=== PATIENT | female | born 1995 | race Two or more races ===

== ENCOUNTER 2024-04-17 12:27 | Emergency (ER) | payer MEDICAID, SELFPAY ==
[2024-04-17 12:38] VITALS: BP 137/88; PULSE 91; RESP 19; TEMP 36.6; O2SAT 98; BMI 36.9
--- NOTE | 2024-04-17 12:58 | XR_ITS ---
Examination: Pelvic ultrasound, transabdominal, complete Technique: Transabdominal ultrasound of the pelvis performed using grayscale imaging Date and time of exam: April 27, 2024 1356 hrs. Indications: Pelvic pressure and pain beginning one week ago Findings: Uterus 9.0 x 4.8 cm Endometrial stripe 16mm No uterine mass or intrauterine gestation Right ovary 5.2 x 4.8 x 5.6 cm arterial flow, 4.6 x 3.9 x 3.9 cm cyst Left ovary 3.3 x 2.0 x 2.5 cm arterial flow Impression: No uterine mass or intrauterine gestation Right ovarian cyst 4.6 x 3.9 x 3.9 cm, with internal echoes, consider hemorrhagic cyst, recommend 3 month follow-up pelvic sonography
--- NOTE | 2024-04-17 12:59 | PD.EDABDPN ---
ED Abdominal Pain RME/HPI General Chief Complaint: Abdominal Pain Stated complaint: PRESSURE ON UTERUS Time seen by provider: 04/17/24 12:56 Arrival date/time: 04/17/24 12:27 28-year-old female presents emergency department complaining of right pelvic pressure and cramping since this morning. Patient reports is approximately 4 to 5 weeks . Patient reports this is first . Source: patient Mode of arrival: ambulatory Limitations: no limitations Related Data Previous Rx's ?Medication ?Instructions ?Recorded omeprazole 40 mg capsule,delayed 40 mg PO QDAY #30 caps 05/19/19 release tramadol 50 mg tablet (Ultram) 50 mg PO BID PRN pain #7 tabs 02/14/20 cyclobenzaprine 10 mg tablet 10 mg PO BID PRN muscle spasm #10 12/10/23 tabs Allergies Allergy/AdvReac Type Severity Reaction Status Date / Time atropine AdvReac Intermediate RASH AND Verified 04/17/24 12:30 TURNED RED hyoscyamine AdvReac Intermediate RASH AND Verified 04/17/24 12:30 TURNED RED phenobarbital AdvReac Intermediate RASH AND Verified 04/17/24 12:30 TURNED RED scopolamine AdvReac Intermediate RASH AND Verified 04/17/24 12:30 TURNED RED Review of Systems Review of Systems Systems Reviewed: All systems reviewed, normal except as documented Constitutional Constitutional: Reports system reviewed and no additional complaints, except as documented, Denies body ache(s), Denies chills and Denies fever(s) Eyes Eyes: Reports system reviewed and no additional complaints, except as documented and Denies change in vision ENT Ears, Nose, Mouth, and Throat: Reports system reviewed and no additional complaints, except as documented, Denies disequilibrium, Denies dizziness, Denies sore throat and Denies vertigo Cardiovascular Cardiovascular: Reports system reviewed and no additional complaints, except as documented, Denies chest pain and Denies dyspnea Respiratory Respiratory: Reports system reviewed and no additional complaints, except as documented, Denies chest congestion, Denies cough and Denies dyspnea Gastrointestinal Gastrointestinal: Reports system reviewed and no additional complaints, except as documented, Denies abdominal pain, Denies nausea and Denies vomiting Genitourinary Genitourinary: Reports pelvic pain Musculoskeletal Musculoskeletal: Reports system reviewed and no additional complaints, except as documented, Denies abnormal gait and Denies arthralgias Integumentary/Breasts Skin/Breast: Reports system reviewed and no additional complaints, except as documented, Denies erythema, Denies rash and Denies wounds Neurologic Neurologic: Reports system reviewed and no additional complaints, except as documented, Denies abnormal gait, Denies disequilibrium, Denies dizziness and Denies vertigo Past Medical History Past Medical History CARDIAC: Negative Congestive Heart Failure RESPIRATORY: Negative Chronic Obstructive Pulmonary Disease (COPD) GENITOURINARY: Negative Renal Disease ENDOCRINE: Negative Diabetes Mellitus Type 1 or Diabetes Mellitus Type 2 Social History SMOKING STATUS: Never smoker ED Exam General Limitations: Present no limitations General appearance: Present alert and in no apparent distress Head Head exam: Present atraumatic Eye Eye exam: Present normal appearance, PERRL and EOMI ENT ENT exam: Present normal exam, normal oropharynx and mucous membranes moist Neck Neck exam: Present normal inspection, full ROM and trachea midline Chest Chest inspection: Present normal inspection and symmetric chest wall rise Respiratory Respiratory exam: Present normal lung sounds bilaterally Cardiovascular Cardiovascular exam: Present regular rate, normal rhythm and normal heart sounds Abdominal Exam Abdominal exam: Present soft and normal bowel sounds Extremities Exam Extremities exam: Present normal inspection and full ROM Back Exam Back exam: Present normal inspection and full ROM Neurological Exam Neurological exam: Present alert, oriented X3 and CN II-XII intact Psychiatric Psychiatric exam: Present normal affect and normal mood Skin Skin exam: Present warm, dry, intact and normal color Course Quality Measures none Orders Category Date Time Status US pelvic complete Stat Exams 04/17/24 12:58 Completed ABO/RH Type Stat Lab 04/17/24 13:07 Completed Beta HCG,Quantitative Stat Lab 04/17/24 13:07 Completed CBC Stat Lab 04/17/24 13:07 Completed CMP [Comprehensive Metabolic Panel] Stat Lab 04/17/24 13:07 Completed Urinalysis, C/S if Indicated Stat Lab 04/17/24 14:11 Completed Vital Signs Vital signs: Vital Signs Temperature 97.9 F 04/17/24 12:38 Pulse Rate 91 04/17/24 12:38 Respiratory Rate 19 04/17/24 12:38 Blood Pressure 137/88 H 04/17/24 12:38 Pulse Oximetry (%) 98 04/17/24 12:38 Oxygen Delivery Method Room Air 04/17/24 12:38 98% on room air within normal limits Abdominal Pain MDM MDM Narrative MDM Narrative:: 28-year-old female presents emergency department complaining of right pelvic pressure and cramping since this morning. Patient reports is approximately 4 to 5 weeks . Patient reports this is first . Patient's abdomen is soft and nontender. Patient pain is localized to right lower pelvic region. Patient denies any vaginal bleeding. Patient denies any fever, chills, nausea vomiting, diarrhea, or any other associated symptom. Patient's test was negative. CBC was unremarkable for any leukocytosis or anemia. CMP was unremarkable. Patient's ultrasound findings right ovarian cyst and radiologist recommends follow-up ultrasound in 3 months. Patient appears nontoxic and hemodynamically stable. Patient instructed to follow-up with primary care provider and request referral to [facility] to have follow-up ultrasound as instructed. Instructed to return to emergency department for any worsening symptoms or as needed. Patient data External records reviewed:: [facility] previous records Clinical information provided by:: patient Social determinants that could affect healthcare access:: none Patient has the following chronic illnesses:: n/a How is presenting disease/condition affected by chronic disease/condition?: no chronic disease Evaluation data The following diagnostics were reviewed and interpreted by me:: lab results and radiology exam(s) Lab and/or radiology exams considered but not ordered:: Ordered Interpretation Summary: Interpreted by me Medications / Prescriptions Medications or Prescriptions considered but not ordered:: N/A Medication administrations:: N/A Consultations Consultation(s) initiated? (list below): No Diagnosis Differential diagnosis abdominal pain: abdominal pain and acute appendicitis Most likely diagnosis given after review of the tests above:: Ovarian cyst Admission Indicated Admission indicated?: not indicated Admission Request Was there a request for admission?: No Disposition Plan Disposition Plan: Discharge Discharge Attestation Discharge Attestation: The patient and all family members were given an opportunity to ask questions and understood the discharge instructions. Discharge instructions specifically effects, indications for sooner follow up or return to the emergency department, and the expected course of current diagnosis. Patient condition: Stable Discharge Plan Plan Patient Disposition: HOME (Self Care) Disposition Comment: Stable Prescriptions/Referrals Prescriptions/Med Rec: No Action omeprazole 40 mg capsule,delayed release(DR/EC) 40 mg PO QDAY Qty: 30 0RF tramadol [Ultram] 50 mg tablet 50 mg PO BID PRN (Reason: pain) Qty: 7 0RF cyclobenzaprine 10 mg tablet 10 mg PO BID PRN (Reason: muscle spasm) Qty: 10 0RF Referrals: Michael Rdz MD [Primary Care Provider] - In 1 week Problem List Clinical Impression: Ovarian cyst Patient/Caregiver Discharge Instructions Education Materials: ED Ovarian Cyst Additional Instructions: Take [id number] Tylenol or ibuprofen as needed for pain. Follow-up with primary care provider and request referral to [facility] for repeat ultrasound of ovarian cyst. Return to emergency department for any worsening symptoms or as needed. Print Language: Yi Stand Alone Forms: Thuy Award Info., Patient Portal Info Letter MD Attestation Attestation The patient was seen by the midlevel practitioner. I, the co-signing physician, was present during the entire ER visit. While I did not physically examine the patient, I was available for consultation as needed.
[2024-04-17 13:35] LABS: Basophils # (Auto) 0.1 Thou/mm3 (0.0-0.2); Basophils % (Auto) 1 % (0-2.5); Eosinophils # (Auto) 0.1 Thou/mm3 (0.0-0.5); Eosinophils % (Auto) 1 % (0-10); Hematocrit 40.4 % (36.0-46.0); Hemoglobin 13.3 g/dL (12.0-16.0); Immature Granulocytes % (Auto) 1 % (0-0); Immature Granulocytes Auto 0.04 Thou/mm3 (0.00-0.00); Lymphocytes # (Auto) 2.3 Thou/mm3 (1.0-4.8); Lymphocytes % (Auto) 31 % (10-50); Mean Corpuscular HGB Conc 32.9 g/dl (31.0-37.0); Mean Corpuscular Hemoglobin 29.2 pg (25.0-35.0); Mean Corpuscular Volume 89 fL (80-100); Monocytes # (Auto) 0.3 Thou/mm3 (0.0-0.8); Monocytes % (Auto) 5 % (0-12); Neutrophils # (Auto) 4.6 Thou/mm3 (1.8-7.7); Neutrophils % (Auto) 63 % (37-80); Nucleated Red Blood Cell % 0 /100 WBC (0); Platelet Count 332 Thou/mm3 (140-440); RDW Standard Deviation 46.2 fL (36.4-46.3); Red Blood Count 4.55 Miln/mm3 (4.00-5.20); White Blood Count 7.4 Thou/mm3 (3.6-11.0)
[2024-04-17 13:51] LABS: Alanine Aminotransferase 31 U/L (10-49); Albumin, Serum 5.2 gm/dL (3.5-5.0); Albumin/Globulin Ratio 1.9 (1.2-2.2); Alkaline Phosphatase 95 U/L (46-116); Anion Gap 6 (7-16); Aspartate Amino Transferase 30 U/L (0-34); BUN/Creatinine Ratio 11 Ratio (12-20); Beta HCG,Quantitative < 1 mIU/mL (<5.0); Bilirubin,Total 0.7 mg/dL (0.3-1.2); Blood Urea Nitrogen 8 mg/dL (9-23); Calcium 10.3 mg/dL (8.3-10.6); Calcium (Corrected) 10.3 mg/dL (8.5-10.1); Carbon Dioxide 25.6 mMol/L (20.0-31.0); Chloride 105 mMol/L (98-107); Creatinine (Component) 0.7 mg/dL (0.6-1.3); Estimated Creatinine Clearance 133.4 mL/min (>60); Globulin 2.8 gm/dL (2.3-3.5); Glucose 98 mg/dL (74-106); Osmolality,Calculated 272 (275-295); Potassium 4.2 mMol/L (3.4-5.1); Sodium 137 mMol/L (136-145); eGFR > 60 See Note
[2024-04-17 14:17] LABS: Collection Type, Urine Clean Catch
[2024-04-17 14:32] LABS: Bacteria,Urine Rare; Bilirubin,Urine Negative (Negative); Blood,Urine Negative (Negative); Clarity,Urine Turbid (Clear/Hazy); Color,Urine Lt-Yellow (Lt Yel-Yel); Culture Indicated,Urine Contaminated; Glucose, Urine Negative (Negative); Ketones,Urine Trace (Negative); Leukocyte Esterase,Urine Positive (Negative); Nitrite,Urine Negative (Negative); PH,Urine 6.5 (5.0-7.0); Protein,Urine Negative (Neg - Trace); RBC,Urine 7 /hpf (0-3); Specific Gravity,Urine 1.016 (1.001-1.035); Squamous Epithelial Cell,Urine 13 /hpf (0-5); Urobilinogen,Urine Negative mg/dL (0.0-1.0); WBC,Urine 71 /hpf (0-5)
[2024-04-17 16:47] VITALS: BP 128/82; PULSE 89; RESP 16; TEMP 37; O2SAT 99
== END 2024-04-17 16:58 | disposition home or self-care (01) ==
PROVIDERS: Emergency Provider Emergency Medicine; PCP Family Medicine
DX: O34.81 Maternal care for other abnormalities of pelvic organs, first trimester (principal); N83.201 Unspecified ovarian cyst, right side; Z3A.01 Less than 8 weeks gestation of pregnancy
CPT/HCPCS: 36415; 76856; 80053; 81001; 84702; 85025; 86900; 86901; 99284

== ENCOUNTER 2024-09-22 11:36 | Emergency (ER) | payer MEDICAID, SELFPAY ==
[2024-09-22 11:37] VITALS: BMI 38.2
[2024-09-22 11:47] VITALS: BP 131/90; PULSE 100; RESP 18; TEMP 36.9; O2SAT 99; BMI 38.2
--- NOTE | 2024-09-22 12:00 | XR_ITS ---
Examination: Lumbar spine, 5 views Technique: Lumbar spine AP, lateral, coned lateral lower lumbar spine, bilateral obliques 5 views Exam date and time: September 22, 2024 1250 hours Comparison December 10, 2023 INDICATIONS: Low back pain radiating down the right leg beginning 2 days ago. FINDINGS: Adequate alignment lumbar vertebral bodies on the lateral view Moderate disc narrowing L4-L5 L5-S1 No spondylolisthesis As clinically warranted, MRI lumbar spine without contrast follow-up would best assess for soft tissue disc protrusion producing radicular right leg pain Impression: No fracture Moderate degenerative disc disease L4-L5, L5-S1
--- NOTE | 2024-09-22 12:00 | EDNOTE_ITS ---
ED Back Injury Pain RME/HPI General Chief Complaint: General Adult/Misc Complain Stated Complaint: UPPER RIGHT BUTTOCK PAIN Time Seen by Provider: 09/22/24 11:46 Source: patient Arrival date/time: 09/22/24 11:36 29-year-old female with no known medical history presents to the emergency room with a chief complaint of lumbar back pain that radiates down her right leg x 2 days. Patient states she has a history of back pain and has seen a chiropractor and physical therapy but it has not helped. Mode of arrival: ambulatory Limitations: no limitations Related Data Previous Rx's ?Medication ?Instructions ?Recorded omeprazole 40 mg capsule,delayed 40 mg PO QDAY #30 cap s 05/19/19 release tramadol 50 mg tablet (Ultram) 50 mg PO BID PRN pain # 7 tabs 02/14/20 cyclobenzaprine 10 mg tablet 10 mg PO BID PRN muscle s pasm #10 12/10/23 tabs Allergies Allergy/AdvReac Type Severity Reaction Status Date / Time atropine AdvReac Intermediate RASH AND Verified 09/22/24 11:39 TURNED RED hyoscyamine AdvReac Intermediate RASH AND Verified 09/22/24 11:39 TURNED RED phenobarbital AdvReac Intermediate RASH AND Verified 09/22/24 11:39 TURNED RED scopolamine AdvReac Intermediate RASH AND Verified 09/22/24 11:39 TURNED RED Review of Systems Review of Systems Systems Reviewed: All systems reviewed, normal except as documented Constitutional Constitutional: Reports system reviewed and no additional complaints, except as documented, Denies fatigue, Denies fever(s), Denies headache(s) and Denies weakness Eyes Eyes: Reports system reviewed and no additional complaints, except as documented, Denies blurry vision and Denies change in vision ENT Ears, Nose, Mouth, and Throat: Reports system reviewed and no additional complaints, except as documented, Denies otalgia, Denies headache(s), Denies nasal congestion, Denies throat swelling and Denies vertigo Cardiovascular Cardiovascular: Reports system reviewed and no additional complaints, except as documented, Denies chest pain, Denies dyspnea and Denies dyspnea on exertion Respiratory Respiratory: Reports system reviewed and no additional complaints, except as documented, Denies chest congestion, Denies cough, Denies dyspnea, Denies dyspnea on exertion and Denies wheezing Gastrointestinal Gastrointestinal: Reports system reviewed and no additional complaints, except as documented, Denies abdominal pain, Denies cramping, Denies nausea and Denies vomiting Genitourinary Genitourinary: Reports system reviewed and no additional complaints, except as documented Musculoskeletal Musculoskeletal: Reports system reviewed and no additional complaints, except as documented, Reports arthralgias, Reports back pain and Reports radiating pain into limb Integumentary/Breasts Skin/Breast: Reports system reviewed and no additional complaints, except as documented and Denies wounds Neurologic Neurologic: Reports system reviewed and no additional complaints, except as documented, Denies confusion, Denies headache(s), Denies lack of coordination, Denies vertigo and Denies weakness Psychiatric Psychiatric: Reports system reviewed and no additional complaints, except as documented, Denies anxiety, Denies confusion, Denies depression, Denies paranoia, Denies suicidal ideation and Denies tactile hallucinations Endocrine Endocrine: Reports system reviewed and no additional complaints, except as documented and Denies fatigue Hematologic/Lymphatic Hematologic/Lymphatic: Reports system reviewed and no additional complaints, except as documented and Denies lymphadenopathy Allergic/Immunologic Allergic/Immunologic: Reports system reviewed and no additional complaints, except as documented, Denies throat swelling, Denies urticaria and Denies wheezing Past Medical History Past Medical History CARDIAC: Negative Congestive Heart Failure RESPIRATORY: Negative Chronic Obstructive Pulmonary Disease (COPD) GENITOURINARY: Negative Renal Disease ENDOCRINE: Negative Diabetes Mellitus Type 1 or Diabetes Mellitus Type 2 Social History SMOKING STATUS: Never smoker ED Exam General Limitations: Present no limitations General appearance: Present alert and in no apparent distress Head Head exam: Present atraumatic Eye Eye exam: Present normal appearance, PERRL and EOMI ENT ENT exam: Present normal exam, normal oropharynx and mucous membranes moist Neck Neck exam: Present normal inspection, full ROM and trachea midline Chest Chest inspection: Present normal inspection and symmetric chest wall rise Respiratory Respiratory exam: Present normal lung sounds bilaterally Cardiovascular Cardiovascular exam: Present regular rate, normal rhythm and normal heart sounds Abdominal Exam Abdominal exam: Present soft and normal bowel sounds Extremities Exam Extremities exam: Present normal inspection and full ROM Back Exam Back exam: Present normal inspection, full ROM, vertebral tenderness and sciatic notch tenderness (R) Neurological Exam Neurological exam: Present alert, oriented X3 and CN II-XII intact Psychiatric Psychiatric exam: Present normal affect and normal mood Skin Skin exam: Present warm, dry, intact and normal color Course Quality Measures none Orders Category Date Time Status XR lumbar spine min 4V Stat Exams 09/22/24 12:00 Completed Ketorolac Inj [Toradol Inj] Med 09/22/24 12:00 Discontinued 30 mg IM X1 ONE Ketorolac Inj [Toradol Inj] Med 09/22/24 12:18 Discontinued 60 mg IM .STK-MED ONE Vital Signs Vital signs: Vital Signs Temperature 98.5 F 09/22/24 11:47 Pulse Rate 100 09/22/24 11:47 Respiratory Rate 18 09/22/24 11:47 Blood Pressure 131/90 H 09/22/24 11:47 Pulse Oximetry (%) 99 09/22/24 11:47 Oxygen Delivery Method Room Air 09/22/24 11:47 O2 saturation 99% within normal limits Back Pain / Injury MDM Narrative MDM Narrative:: 29-year-old female with no known medical history presents to the emergency room with a chief complaint of lumbar back pain that radiates down her right leg x 2 days. Patient states she has a history of back pain and has seen a chiropractor and physical therapy but it has not helped. Patient is hemodynamically stable and in no apparent distress Physical examination shows pain and tenderness to the lumbar area of the patient's spine. Patient also has right-sided sciatic notch tenderness. Patient states the pain radiates intermittently and shoots down her right leg. Patient has seen a chiropractor and physical therapist but they have not been a ble to help her problems. X-ray of the lumbar spine shows moderate degenerative disc disease from L4-L5 as well as L5-S1. Medication was given to the patient with significant improvement to her sympt oms. The patient was educated to follow-up with her primary care provider as a referral to a executive relations specialist will be needed if her signs and symptoms continue Patient was discharged and educated to follow-up with primary care provider in the next 24 to 48 hours and return to the emergency room for any evidence of worsening signs or symptoms Patient data External records reviewed:: [facility] previous records Clinical information provided by:: patient Social determinants that could affect healthcare access:: none Patient has the following chronic illnesses:: No chronic illness How is presenting disease/condition affected by chronic disease/condition?: no chronic disease Evaluation data The following diagnostics were reviewed and interpreted by me:: lab results and radiology exam(s) Lab and/or radiology exams considered but not ordered:: Labs and radiology exams considered and ordered Interpretation Summary: Lumbar [id number]: Adequate alignment lumbar vertebral bodies on the lateral view Moderate disc narrowing L4-L5 L5-S1 No spondylolisthesis As clinically warranted, MRI lumbar spine without contrast follow-up would best assess for soft tissue disc protrusion producing radicular right leg pain Impression: No fracture Moderate degenerative disc disease L4-L5, L5-S1 Medications / Prescriptions Medications or Prescriptions considered but not ordered:: Medication given Medication administrations:: Medication Administration History Discontinued Medications Ketorolac Tromethamine (Ketorolac Inj 60 Mg/2 Ml Vial) 30 mg IM X1 ONE Stop: 09/22/24 12:01 Last Admin: 09/22/24 12:17 Dose: 30 mg Documented By: ERIKA Ketorolac Tromethamine (Ketorolac Inj 60 Mg/2 Ml Vial) Confirm Administered Dose 60 mg IM .STK-MED ONE Stop: 09/22/24 12:19 Last Admin: 09/22/24 12:19 Dose: Not Given Documented By: ERIKA Non-Admin Reason: Override Medication Medication given Consultations Consultation(s) initiated? (list below): No Diagnosis Differential diagnosis back pain/injury: lumbar radiculopathy, sciatica, strain of lumbar region and thoracic back pain Most likely diagnosis given after review of the tests above:: Sciatica Admission Indicated Admission indicated?: not indicated Admission Request Was there a request for admission?: No Disposition Plan Disposition Plan: Discharge Discharge Attestation Discharge Attestation: The patient and all family members were given an opportunity to ask questions and understood the discharge instructions. Discharge instructions specifically effects, indications for sooner follow up or return to the emergency department, and the expected course of current diagnosis. Patient condition: Stable Discharge Plan Plan Patient Disposition: HOME (Self Care) Disposition Comment: Stable Prescriptions/Referrals Prescriptions/Med Rec: No Action omeprazole 40 mg capsule,delayed release(DR/EC) 40 mg PO QDAY Qty: 30 0RF tramadol [Ultram] 50 mg tablet 50 mg PO BID PRN (Reason: pain) Qty: 7 0RF cyclobenzaprine 10 mg tablet 10 mg PO BID PRN (Reason: muscle spasm) Qty: 10 0RF Referrals: No Primary/Family,Physician [Primary Care Provider] - In 1 week Problem List Clinical Impression: Sciatica of right side Patient/Caregiver Discharge Instructions Education Materials: ED Sciatica Additional Instructions: Please follow-up with your primary care provider in the next 24 to 48 hours. Your x-ray of your lumbar spine shows some moderate degenerative disc disease in your L4-L5 and L5-S1 area of your spine. Please follow-up with your primary care provider as a referral to a executive relations specialist might be needed if your signs and symptoms continue. For any evidence of worsening signs or symptoms return to the emergency room immediately Print Language: Citizen Of [place] Stand Alone Forms: Thuy Award Info., Patient Portal Info Letter PA/RN FLIGHT Supervising Physician PA/SNEHAL Supervising Physician: Dr Maya
[2024-09-22] MEDS: KETOROLAC INJ 60 MG/2 ML VIAL 30 MG IM (12:17)
== END 2024-09-22 14:15 | disposition home or self-care (01) ==
PROVIDERS: Emergency Provider Emergency Medicine
DX: M54.41 Lumbago with sciatica, right side (principal)
CPT/HCPCS: 72110; 96372; 99283; J1885